=== PATIENT | female | born 1960 | race Caucasian/White ===

== ENCOUNTER 2016-04-17 11:42 | Emergency (ER) | payer MEDICARE | END 2016-04-17 13:59 | disposition home or self-care (01) | LOC: D.ER 11:42 | DX: G89.18 Other acute postprocedural pain (principal); K05.10 Chronic gingivitis, plaque induced; F41.9 Anxiety disorder, unspecified; J44.9 Chronic obstructive pulmonary disease, unspecified; F32.9 Major depressive disorder, single episode, unspecified; A60.00 Herpesviral infection of urogenital system, unspecified; G47.00 Insomnia, unspecified ==

== ENCOUNTER 2016-07-20 10:20 | Emergency (ER) | payer MEDICARE | END 2016-07-20 12:48 | disposition home or self-care (01) | LOC: D.ER 10:20 | DX: B00.9 Herpesviral infection, unspecified (principal); K64.4 Residual hemorrhoidal skin tags; F41.9 Anxiety disorder, unspecified; J44.9 Chronic obstructive pulmonary disease, unspecified; G47.00 Insomnia, unspecified; F17.200 Nicotine dependence, unspecified, uncomplicated ==